=== PATIENT | female | born 1940 | race Caucasian/White ===

== ENCOUNTER 2019-10-21 18:38 | Emergency (ER) | payer MEDICARE, MEDICAID, SELFPAY ==
--- NOTE | ~2019-10-21 | CT_ITS ---
EXAMINATION: CTA chest PE protocol DATE: 10/22/2019 08:37 CDT INDICATION: Shortness of breath TECHNIQUE: Computed tomographic angiography (CTA) of the chest was performed with 100 mL Omnipaque-35 0 intravenous contrast. The dose-length product was 882.18 mGy-cm. Maximum intensity projection 3D-re constructions of the aorta and other arteries were constructed by the technologist on a separate work station. Automated exposure control and iterative reconstruction technique were employed. 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 Left breast implant. Study is technically adequate , although somewhat limited by respiratory motion artifact. No central pulmonary embolism identified. Cardiomegaly. Status post median sternotomy for CABG. No evidence for thoracic aortic aneurysm or di ssection. There is mosaic attenuation bilaterally, compatible with small airway disease. Mild bronchi al wall thickening. There is linear scattered atelectasis bilaterally. There are pacemaker leads pres ent. There are surgical changes consistent with cholecystectomy. Moderate thoracic spondylosis. IMPRESSION: 1. No central pulmonary embolism. 2: Scattered linear infiltrates, consistent with atelectasis. 3: Patchy mosaic attenuation bilaterally, consistent with small airway disease. Reviewed, dictated and finalized at location A.
--- NOTE | ~2019-10-21 | XR_ITS ---
EXAMINATION: XR chest 1V portable DATE: 10/21/2019 20:22 INDICATION: Shortness of breath and mid chest pain TECHNIQUE: frontal view of the chest was obtained. COMPARISON: None FINDINGS: Evaluation of fine pulmonary parenchymal detail is somewhat limited by body habitus and portable tech nique. The lungs are clear with no focal airspace opacities, pulmonary edema, pleural effusion or pne umothorax. Cardiomegaly. Median sternotomy wires and mediastinal surgical clips are seen, likely from prior coronary artery bypass grafting. Dual lead pacemaker seen with leads projecting over the expec nichol locations of the right atrium and right ventricle. Opacity projecting over the right upper lung z one which may be related to a breast [place] mason given the provided history of prior mastectomy. IMPRESSION: 1. No acute cardiopulmonary disease. 2. Cardiomegaly. Reviewed, dictated and finalized at location A.
[2019-10-21 18:41] VITALS: PULSE 95; RESP 22; TEMP 36.4; O2SAT 98
--- NOTE | 2019-10-21 19:06 | ECG_ITS ---
Measurements Intervals [place] Rate: 90 P: 55 ID: [id number] QRS: -36 QRSD: 162 T: 100 QT: 407 QTc: 500 Interpretive Statements ATRIAL SENSE- ELECTRONIC VENTRICULAR PACEMAKER BASELINE WANDER- I, V6 ATYPICAL ECG Electronically Signed On 10-22-2019 8:09:37 CDT by Ge Quezada D.O.
[2019-10-21 19:11] VITALS: PULSE 84; O2SAT 99
[2019-10-21 19:24] LABS: Basophils Absolute Auto 0.1 K/mm3 (0.0-0.1); Basophils Percent Auto 0.6 % (0.2-1.2); Eosinophils Absolute Auto 0.7 K/mm3 (0-0.3); Eosinophils Percent Auto 5.5 % (0-4.4); Hematocrit 38.8 % (37.0-47.0); Hemoglobin 12.4 g/dL (12.0-15.0); Immature Granulocyte Absolute 0.05 K/mm3 (0.00-0.031); Immature Granulocyte Percent A 0.4 % (0-0.5); Lymphocytes Absolute Auto 2.59 K/mm3 (0.9-3.2); Lymphocytes Percent Auto 19.3 % (18.3-44.2); Mean Corpuscular Hemoglobin 28.4 pg (26-34); Mean Corpuscular Volume 88.8 fl (80-100); Mean Platelet Volume 10.8 fl (7.4-10.4); Monocytes Absolute Auto 1.1 K/mm3 (0.1-0.6); Monocytes Percent Auto 8.4 % (2.6-8.5); Neutrophils Absolute Auto 8.8 K/mm3 (1.3-6.7); Neutrophils Percent Auto 65.8 % (45.5-73.1); Platelet Count Result 257 k/mm3 (150-375); Red Blood Count 4.37 M/mm3 (4.2-5.4); Red Cell Distribution Width 13.6 % (11.5-14.5); White Blood Count 13.4 K/mm3 (4.5-10.0)
--- NOTE | 2019-10-21 19:26 | ED.SOB ---
HPI - SOB/Dyspnea General Chief Complaint: Shortness of Breath/Dyspnea Stated Complaint: SOB Time Seen by Provider: 10/21/19 19:03 Source: patient and family Mode of arrival: ambulatory Limitations: no limitations History of Present Illness HPI Narrative: This patient is a 79 year old female with history of CHF, HTN, pacemaker, asthma who presents for evaluation of shortness of breath. Patient's son is at bedside assisting with history as well. He states 2 hours ago patient was walking to the car and she became sob and she was unable to breath. Patient states she typically has shortness of breath with exertion due to CHF. Today she walked 40 ft and she developed shortness of breath. She states she normally does not walk that far. She used her albuterol inhaler prior to coming ER and she feels better. She also states she had brief midsternal sharp chest pain that has now resolved. She still has some sob. She has some mild edema but she is unsure if it is worse than usual. She denies associated nausea, dizziness or weakness. MD elicited complaint: shortness of breath Pertinent past history: congestive heart failure Timing: improved Exacerbating factors: exertion Relieving factors: bronchodilators Known history of: asthma and congestive heart failure Associated symptoms: chest pain and wheezing Treatment prior to arrival: bronchodilator Related Data Home oxygen amount: none Home Medications Medication Instructions Recorded Confirmed albuterol sulfate [Ventolin HFA] 1 inh INHALATION QID 10/21/19 atorvastatin 80 mg PO DAILY 10/21/19 buspirone 10 mg PO QID 10/21/19 carvedilol 6.25 mg PO BID 10/21/19 duloxetine 60 mg PO DAILY 10/21/19 furosemide [Lasix] 40 mg PO BID 10/21/19 hydrocodone-acetaminophen [[place]] 1 tablet PO Q8H PRN 10/21/19 insulin glargine U-300 conc 30 unit SUBCUT DAILY 10/21/19 [Kelvin Gilman U-300 Insulin] insulin lispro [Humalog KwikPen unit SUBCUT 10/21/19 Insulin] lisinopril 10 mg PO DAILY 10/21/19 metformin 500 mg PO BID 10/21/19 pantoprazole 40 mg PO QAM 10/21/19 potassium chloride 20 meq PO DAILY 10/21/19 rivaroxaban [Xarelto] 2.5 mg PO BID 10/21/19 Allergies Allergy/AdvReac Type Severity Reaction Status Date / Time No Known Allergies Allergy Verified 10/21/19 18:43 Review of Systems Review of Systems: All systems reviewed & are unremarkable except as noted in HPI and below Constitutional: Constitutional: Denies chills, Denies fever(s) and Reports weakness ENT: Denies dizziness, Denies nasal congestion and Denies sore throat Cardiovascular: Cardiovascular: Reports chest pain Respiratory: Respiratory: Denies cough, Reports dyspnea and Reports wheezing Gastrointestinal: Gastrointestinal: Denies abdominal pain, Denies nausea and Denies vomiting Integumentary/Breasts: Skin/Breast: Reports rash PMFSH Past Medical History Medical History (Updated 10/21/19 @ 23:37 by Kimberley Pedersen MD) Anxiety Congestive heart failure Depression Diabetes mellitus Hyperlipidemia Surgical History Surgical History (Updated 10/21/19 @ 19:29 by Kimberley Pedersen MD) H/O mastectomy Hx of CABG Exam Const: General: alert Orientation/consciousness: patient oriented x3 Eyes: Pupils: Equal, round and reactive pupils present EOM: EOMs intact bilaterally Neck: Neck: no lymphadenopathy Chest: Chest palpation & inspection: normal inspection of the chest Resp: Effort & Inspection: normal respiratory effort Auscultation: clear to auscultation bilaterally and diminished lung sounds Cardio: Rate: regular rate Rhythm: regular rhythm Heart sounds: no murmurs GI: GI Palp: Yes Soft to palpation, No Tenderness to palpation present (GI) and No Guarding due to palpation present (GI) Skin: Other: rash to right lower miramontes Neuro: General: patient oriented x3 and moves all extremities Extrem: General: no pedal edema Course Reevaluation(s) Reevaluation #1: Patien
[2019-10-21 19:33] LABS: INR 1.1; Prothrombin Time 13.4 Seconds (11.1-14.7)
[2019-10-21 19:34] LABS: Partial Thromboplastin Time 27.9 SECONDS (22.3-36.8)
--- NOTE | 2019-10-21 19:34 | PC.NURSE ---
Multiple attempts at IV at this time.
[2019-10-21 19:43] LABS: Alveolar/Arterial O2 Gradient 22.1 mmHg; Base Excess ABG 2.3 mEq/l (+/-2.0); Fractional Inspired Oxygen 21 %; HCO3 ABG 26.9 mEq/l (22.0-26.0); Oxygen Content ABG 16.5 %vol (16.0-22.0); Oxygen Saturation ABG 95.8 % (95.0-100.0); Oxyhemoglobin 94.2 % THb (90.0-100.0); PCO2 ABG 41.5 mmHg (35.0-45.0); PO2 ABG 77.9 mmHg (80.0-100.0); PO2 FiO2 Ratio Arterial Blood 3.71 %; Total Hemoglobin 12.4 g/dL (12.0-18.0); pH ABG 7.429 (7.350-7.450)
[2019-10-21 19:44] LABS: Device ROOM AIR; Site Drawn RIGHT BRACHIAL
[2019-10-21 20:11] LABS: Blood Urea Nitrogen 15 mg/dL (7-17); Carbon Dioxide 31 mmol/L (22-30); Chloride 99 mmol/L (98-107); Estimated Glomerular Filt Rate > 60; Glucose 214 mg/dL (65-105); Potassium 4.1 mmol/L (3.4-5.0); Sodium 137 mmol/L (137-145)
[2019-10-21 20:22] VITALS: BP 164/84; PULSE 89; RESP 20; O2SAT 97
[2019-10-21 20:23] LABS: NT Pro B Type Natriuretic Pept 474 PG/ML (5-100); Troponin I 0.017 ng/mL (0.000-0.034)
[2019-10-21 21:21] LABS: Add Urine Microscopic? YES; Appearance Urine Clear (Clear); Bilirubin Urine Negative (Negative); Blood Urine Negative (Negative); Color Urine Yellow (Yellow); Glucose Urine UA Negative (Negative); Ketones Urine Negative (Negative); Leukocyte Esterase Ur Trace LEU/UL (Negative); Mucus Urine Rare /lpf; Nitrate Urine Negative (Negative); Protein Urine Negative (Negative); RBC Urine 0-2 /hpf (0-2); Specific Grav Ur 1.015 (1.001-1.035); Urobilinogen Urine Negative mg/dL (<2.0)
[2019-10-21 23:00] VITALS: BP 138/45; PULSE 85; RESP 18; O2SAT 96
[2019-10-21 23:27] LABS: Troponin I 0.022 ng/mL (0.000-0.034)
[2019-10-22 00:13] VITALS: BP 128/70; PULSE 64; RESP 18; O2SAT 98
== END 2019-10-22 00:14 | disposition home or self-care (01) ==
PROVIDERS: Emergency Provider General Practice; PCP Internal Medicine
DX: J21.9 Acute bronchiolitis, unspecified (principal); R06.00 Dyspnea, unspecified; I50.9 Heart failure, unspecified; I11.0 Hypertensive heart disease with heart failure; Z95.0 Presence of cardiac pacemaker; J45.909 Unspecified asthma, uncomplicated; E78.5 Hyperlipidemia, unspecified; E11.9 Type 2 diabetes mellitus without complications; Z95.1 Presence of aortocoronary bypass graft; I25.10 Atherosclerotic heart disease of native coronary artery without angina pectoris; Z79.01 Long term (current) use of anticoagulants; Z79.84 Long term (current) use of oral hypoglycemic drugs; Z79.4 Long term (current) use of insulin; F41.9 Anxiety disorder, unspecified; F32.9 Major depressive disorder, single episode, unspecified; Z90.10 Acquired absence of unspecified breast and nipple; I51.7 Cardiomegaly
CPT/HCPCS: 36415; 36600; 71045; 71275; 80048; 81001; 82805; 83880; 84484; 85025; 85610; 85730; 87086; 87088; 93005; 99284; Q9967

== ENCOUNTER 2020-02-13 12:41 | Outpatient (CLI) | payer MEDICARE, MEDICAID, SELFPAY | END 2020-02-13 12:42 | disposition home or self-care (01) | LOC: ANHAUDIO 12:43 | PROVIDERS: PCP Internal Medicine; Visit Provider Internal Medicine | DX: H91.93 Unspecified hearing loss, bilateral (principal) | CPT/HCPCS: 92557; 92567 ==

== ENCOUNTER 2020-06-24 11:30 | Outpatient (RCR) | payer MEDICARE, MEDICAID, SELFPAY | END 2020-06-24 23:59 | disposition home or self-care (01) | LOC: ANHAUDIO 11:30 | PROVIDERS: PCP Internal Medicine | DX: Z46.1 Encounter for fitting and adjustment of hearing aid (principal) | CPT/HCPCS: 99199; V5160; V5261 ==

== ENCOUNTER 2020-08-26 14:23 | Outpatient (RCR) | payer MEDICAID, SELFPAY | END 2020-08-26 23:59 | disposition home or self-care (01) | LOC: ANHAUDIO 14:23 | PROVIDERS: PCP Internal Medicine; Visit Provider Internal Medicine | DX: Z46.1 Encounter for fitting and adjustment of hearing aid (principal) | CPT/HCPCS: 99199 ==